=== PATIENT | female | born 1985 | race Caucasian/White ===

== ENCOUNTER → 2017-05-07 | Outpatient (CLI) | payer MEDICARE, OTHER ==
[2017-05-07 13:22] LABS: Basophils % (A) 1 %; Eosinophils % (A) 1 %; HCT 42.5 % (34.0-46.0); HGB 12.1 gm/dL (11.4-16.0); Hypochromasia Marked; Lymphocytes # (A) 1.5 k/uL (1.0-4.8); Lymphocytes % (A) 27 %; MCH 23.9 pg (25.0-35.0); MCHC 28.5 g/dL (31.0-37.0); MCV 83.8 fL (80.0-100.0); Mean Platelet Volume 6.8; Monocytes # (A) 0.2 k/uL (0-1.0); Monocytes % (A) 4 %; Neutrophils # (A) 3.8 k/uL (1.3-7.7); Neutrophils % (A) 67 %; Platelet Count 351 k/uL (150-450); RBC 5.07 m/uL (3.80-5.40); RDW 14.1 % (11.5-15.5); WBC 5.6 k/uL (3.8-10.6)
[2017-05-07 13:53] LABS: Albumin 4.3 g/dL (3.5-5.0); Chloride 102 mmol/L (98-107); Cholesterol 159 mg/dL (<200); Potassium 3.8 mmol/L (3.5-5.1); Sodium 141 mmol/L (137-145)
[2017-05-07 14:15] LABS: ALT 28 U/L (9-52); AST 29 U/L (14-36); Alkaline Phosphatase 106 U/L (38-126); Anion Gap 12 mmol/L; Blood Urea Nitrogen 10 mg/dL (7-17); Calcium 9.7 mg/dL (8.4-10.2); Carbon Dioxide 27 mmol/L (22-30); Glucose 97 mg/dL (74-99); HDL Cholesterol 76 mg/dL (40-60); LDL Cholesterol,Calculated 71 mg/dL (0-99); Total Bilirubin 0.7 mg/dL (0.2-1.3); Total Protein 7.7 g/dL (6.3-8.2); Triglycerides 62 mg/dL (<150)
[2017-05-07 14:56] LABS: T4, Free (Free Thyroxine) 0.61 ng/dL (0.78-2.19)
[2017-05-07 20:12] LABS: Iron Saturation 6.69 (12.00-45.00)
[2017-05-07 20:20] LABS: Vitamin D 25 Hydroxy 16.6 ng/mL (30.0-100.0)
[2017-05-07 20:39] LABS: Thyroid Peroxidase Antibodies <28.0 U/mL (0.0-60.0)
== END | disposition home or self-care (01) ==
LOC: LABWHC1 12:36
PROVIDERS: ATTEND Family Medicine
DX: D50.9 Iron deficiency anemia, unspecified (principal); R74.8 Abnormal levels of other serum enzymes; E06.3 Autoimmune thyroiditis
CPT/HCPCS: 36415; 80053; 80061; 82306; 82728; 83540; 83550; 84439; 84443; 84482; 85025; 86376; 86800

== ENCOUNTER → 2017-08-07 | Outpatient (CLI) | payer OTHER, MEDICARE ==
--- NOTE | 2017-08-07 15:05 | MR ---
EXAMINATION TYPE: MR brain wo/w con DATE OF EXAM: 08/07/2017 COMPARISON: NONE HISTORY: Pituitary hypofunction, migraines TECHNIQUE: Multiplanar, multisequence images of the brain and brainstem is performed without and with IV contras t, utilizing 7 mL intravenous Gadavist . FINDINGS: Diffusion weighted images demonstrate no evidence of a recent infarct or other diffusion abnormality. There is no extra-axial fluid collection or significant white matter signal abnormality. The ventr icular system and cisternal spaces are normal in size and appearance. The brain volume is age approp riate. Major intracranial flow voids are maintained. Midline structures demonstrate normal morphology. The craniocervical junction appears within normal limits. Post contrast images demonstrate no abnormal e nhancement. The dural venous sinuses appear patent. Scant mucosal thickening is seen within the ethmo id sinuses The remaining visualized sinuses are clear and the globes are intact. No pituitary gland e nlargement is identified. However, microadenoma is not excluded and small [id number] imaging is re commended if there is concern given the patient's history. IMPRESSION: 1. No acute intracranial process. No abnormal postcontrast enhancement. No significant white matter c hange. 2. Scant mucosal thickening within the ethmoid sinuses. 3. No enlargement of the pituitary gland without discrete pituitary abnormality, however as stated ab ove microadenoma is not excluded and small maems-ki-yniw imaging (MR pituitary mass protocol) is bety mmended if there is further concern.
== END | disposition home or self-care (01) ==
LOC: RADMRIMAIN 13:00
PROVIDERS: ATTEND Obstetrics & Gynecology Obstetrics
DX: E23.0 Hypopituitarism (principal)
CPT/HCPCS: 70553; A9581

== ENCOUNTER → 2017-08-08 | Outpatient (CLI) | payer OTHER, MEDICARE ==
--- NOTE | 2017-08-08 18:43 | MR ---
EXAMINATION TYPE: MR pituitary wo/w con DATE OF EXAM: 08/08/2017 COMPARISON: MRI brain from yesterday. HISTORY: Pituitary hypofunction. TECHNIQUE: Multiplanar, multisequence images of the brain and brainstem is performed without and with IV contras t, utilizing 7 mL intravenous Gadavist . Pituitary protocol. FINDINGS: Pituitary gland is normal in size with an sella turcica. Pituitary stalk shows normal enhan cement in the midline. Postcontrast images show heterogeneous enhancement with more focal oval poorly defined area of diminished enhancement anteriorly in the midline measuring 2.6 mm transversely coron al image 11 x 3.6 mm AP diameter sagittal image 10 in which microadenoma cannot be excluded. Suprasel lar cistern is maintained. Optic chiasm is not effaced. Craniocervical junction is preserved. No gross hydrocephalus is seen. Normal vascular flow voids are noted. IMPRESSION: Cannot exclude pituitary microadenoma as detailed above. Consider neurosurgical referral based on clinical and lab correlation.
== END | disposition home or self-care (01) ==
LOC: RADMRIMAIN 12:53
PROVIDERS: ATTEND Obstetrics & Gynecology Obstetrics
DX: E23.0 Hypopituitarism (principal)
CPT/HCPCS: 70553; A9581

== ENCOUNTER 2020-11-21 10:52 | Inpatient (IN) | payer MEDICARE, OTHER ==
[2020-11-21] MEDS ORDERED: SODIUM CHLORIDE 0.9% 1,000 ML IV STA (11:16)
[2020-11-21] MEDS ORDERED: ONDANSETRON 4 MG/2 ML VIAL IVP STA (11:16)
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
[2020-11-21 11:46] LABS: Basophils % (A) 1 %; Eosinophils # (A) 0.1 k/uL (0-0.7); Eosinophils % (A) 2 %; HCT 32.9 % (34.0-46.0); HGB 10.7 gm/dL (11.4-16.0); Hypochromasia Slight; Lymphocytes # (A) 1.2 k/uL (1.0-4.8); Lymphocytes % (A) 25 %; MCHC 32.6 g/dL (31.0-37.0); MCV 85.7 fL (80.0-100.0); Mean Platelet Volume 8.3; Monocytes # (A) 0.2 k/uL (0-1.0); Monocytes % (A) 5 %; Neutrophils # (A) 3.3 k/uL (1.3-7.7); Neutrophils % (A) 66 %; Platelet Count 276 k/uL (150-450); RBC 3.84 m/uL (3.80-5.40); RDW 14.2 % (11.5-15.5)
[2020-11-21 11:56] LABS: ALT 17 U/L (4-34); African American GFR (CKD) >90 (>60 ml/min/1.73 sqM); Albumin 4.1 g/dL (3.5-5.0); Amylase 71 U/L (30-110); Anion Gap 8 mmol/L; Blood Urea Nitrogen 11 mg/dL (7-17); Calcium 9.2 mg/dL (8.4-10.2); Carbon Dioxide 24 mmol/L (22-30); Chloride 104 mmol/L (98-107); Glucose 94 mg/dL (74-99); Lipase 156 U/L (23-300); Non-African American GFR(CKD) >90 (>60 ml/min/1.73 sqM); Sodium 136 mmol/L (137-145); Total Bilirubin 0.8 mg/dL (0.2-1.3)
[2020-11-21 11:59] LABS: Amorphous Sediment,Urine Occasional /hpf; Appearance,Urine Cloudy (Clear); Bilirubin,Urine Negative (Negative); Blood,Urine Negative (Negative); Color,Urine Yellow; Glucose,Urine (UA) Negative (Negative); Ketones,Urine Negative (Negative); Leukocyte Esterase,Urine Negative (Negative); Mucus,Urine Rare /hpf; Nitrite,Urine Negative (Negative); PH, Urine 7.5 (5.0-8.0); Protein,Urine Trace (Negative); RBC,Urine <1 /hpf (0-5); Specific Gravity,Urine 1.017 (1.001-1.035); Squamous Epithelial Cell,Urine 1 /hpf (0-4); WBC,Urine 1 /hpf (0-5)
[2020-11-21 12:02] LABS: AST 52 U/L (14-36); Potassium 4.8 mmol/L (3.5-5.1)
[2020-11-21 12:03] LABS: Alkaline Phosphatase 46 U/L (38-126)
[2020-11-21 13:05] LABS: Amphetamine Screen,Urine Detected (NotDetected); Barbiturate Screen,Urine Not Detected (NotDetected); Benzodiazepines Screen,Urine Detected (NotDetected); Cocaine Screen,Urine Not Detected (NotDetected); Methadone Screen, Urine Not Detected (NotDetected); Opiate Screen,Urine Not Detected (NotDetected); Oxycodone Screen, Urine Not Detected (NotDetected); Phencyclidine Screen,Urine Not Detected (NotDetected); Tricyclic Antidepressant,Urine Not Detected (NotDetected); Urn Cannabinoid Scrn Detected (NotDetected)
[2020-11-21] MEDS ORDERED: LORazepam 2 MG/ML INJ IM STA (14:25)
[2020-11-21] MEDS ORDERED: LORazepam 1 MG TAB PO STA (14:52)
[2020-11-21] MEDS ORDERED: MAG HYDROX/AL HYDROX/SIMETH 30 ML CUP PO PRN (15:42)
[2020-11-21] MEDS ORDERED: ACETAMINOPHEN TAB 325 MG TAB PO PRN (15:42)
[2020-11-21] MEDS ORDERED: MAGNESIUM HYDROXIDE 2,400 MG/10 ML CUP PO PRN (15:42)
[2020-11-21] MEDS ORDERED: LORazepam 2 MG/ML INJ IM PRN (15:45)
[2020-11-21] MEDS ORDERED: HALOPERIDOL LACTATE 5 MG/ML 1 ML VIAL IM PRN (15:46)
[2020-11-21] MEDS ORDERED: haloperidoL 5 MG TAB PO PRN (15:46)
[2020-11-21 16:12] VITALS: RESP 16
[2020-11-22 07:10] VITALS: BP 104/76; PULSE 76; TEMP 97.3
[2020-11-22] MEDS: LORazepam 1 MG TAB PO PRN (09:37)
--- NOTE | 2020-11-22 12:56 | P.HP ---
Psychiatric H&P - . H&P Date: 11/22/20 History & Physical: Allergies Allergy/AdvReac Type Severity Reaction Status Date / Time morphine Allergy Unknown Verified 11/21/20 11:39 nickel Allergy Unknown Verified 11/21/20 11:39 Latex, Natural Rubber AdvReac Rash/Hives Verified 11/21/20 16:26 Vital Signs Temp 97.3 F L 11/22/20 06:57 Pulse 76 11/22/20 06:57 Resp 16 11/22/20 06:57 BP 104/76 11/22/20 06:57 Pulse Ox 100 11/21/20 15:30 Intake & Output 11/21/20 11/22/20 11/22/20 18:59 06:59 18:59 Weight 56.9 kg Laboratory Last Values WBC 5.0 k/uL (3.8-10.6) 11/21/20 11:28 RBC 3.84 m/uL (3.80-5.40) 11/21/20 11:28 Hgb 10.7 gm/dL (11.4-16.0) L 11/21/20 11:28 Hct 32.9 % (34.0-46.0) L 11/21/20 11:28 MCV 85.7 fL (80.0-100.0) 11/21/20 11:28 MCH 28.0 pg (25.0-35.0) 11/21/20 11:28 MCHC 32.6 g/dL (31.0-37.0) 11/21/20 11:28 RDW 14.2 % (11.5-15.5) 11/21/20 11:28 Plt Count 276 k/uL (150-450) 11/21/20 11:28 MPV 8.3 11/21/20 11:28 Neutrophils % 66 % 11/21/20 11:28 Lymphocytes % 25 % 11/21/20 11:28 Monocytes % 5 % 11/21/20 11:28 Eosinophils % 2 % 11/21/20 11:28 Basophils % 1 % 11/21/20 11:28 Neutrophils # 3.3 k/uL (1.3-7.7) 11/21/20 11:28 Lymphocytes # 1.2 k/uL (1.0-4.8) 11/21/20 11:28 Monocytes # 0.2 k/uL (0-1.0) 11/21/20 11:28 Eosinophils # 0.1 k/uL (0-0.7) 11/21/20 11:28 Basophils # 0.0 k/uL (0-0.2) 11/21/20 11:28 Hypochromasia Slight 11/21/20 11:28 Sodium 136 mmol/L (137-145) L 11/21/20 11:28 Potassium 4.8 mmol/L (3.5-5.1) 11/21/20 11:28 Chloride 104 mmol/L (98-107) 11/21/20 11:28 Carbon Dioxide 24 mmol/L (22-30) 11/21/20 11:28 Anion Gap 8 mmol/L 11/21/20 11:28 BUN 11 mg/dL (7-17) 11/21/20 11:28 Creatinine 0.65 mg/dL (0.52-1.04) 11/21/20 11:28 Est GFR (CKD-EPI)AfAm >90 (>60 ml/min/1.73 sqM) 11/21/20 11:28 Est GFR (CKD-EPI)NonAf >90 (>60 ml/min/1.73 sqM) 11/21/20 11:28 Glucose 94 mg/dL (74-99) 11/21/20 11:28 Plasma Lactic Acid Rigo 1.4 mmol/L (0.7-2.0) 11/21/20 11:28 Calcium 9.2 mg/dL (8.4-10.2) 11/21/20 11:28 Total Bilirubin 0.8 mg/dL (0.2-1.3) 11/21/20 11:28 AST 52 U/L (14-36) H 11/21/20 11:28 ALT 17 U/L (4-34) 11/21/20 11:28 Alkaline Phosphatase 46 U/L (38-126) 11/21/20 11:28 Total Protein 7.0 g/dL (6.3-8.2) 11/21/20 11:28 Albumin 4.1 g/dL (3.5-5.0) 11/21/20 11:28 Amylase 71 U/L (30-110) 11/21/20 11:28 Lipase 156 U/L (23-300) 11/21/20 11:28 TSH 1.420 mIU/L (0.465-4.680) 11/21/20 11:28 Urine Color Yellow 11/21/20 11:28 Urine Appearance Cloudy (Clear) H 11/21/20 11:28 Urine pH 7.5 (5.0-8.0) 11/21/20 11:28 Ur Specific [place] 1.017 (1.001-1.035) 11/21/20 11:28 Urine Protein Trace (Negative) H 11/21/20 11:28 Urine Glucose (UA) Negative (Negative) 11/21/20 11:28 Urine Ketones Negative (Negative) 11/21/20 11:28 Urine Blood Negative (Negative) 11/21/20 11:28 Urine Nitrite Negative (Negative) 11/21/20 11:28 Urine Bilirubin Negative (Negative) 11/21/20 11:28 Urine Urobilinogen 2.0 mg/dL (<2.0) 11/21/20 11:28 Ur Leukocyte Esterase Negative (Negative) 11/21/20 11:28 Urine RBC <1 /hpf (0-5) 11/21/20 11:28 Urine WBC 1 /hpf (0-5) 11/21/20 11:28 Ur Squamous Epith Cells 1 /hpf (0-4) 11/21/20 11:28 Amorphous Sediment Occasional /hpf (None) H 11/21/20 11:28 Urine Mucus Rare /hpf (None) H 11/21/20 11:28 Urine HCG, Qual Not Detected (Not Detectd) 11/21/20 11:28 Urine Opiates Screen Not Detected (NotDetected) 11/21/20 12:38 Ur Oxycodone Screen Not Detected (NotDetected) 11/21/20 12:38 Urine Methadone Screen Not Detected (NotDetected) 11/21/20 12:38 Ur Propoxyphene Screen Not Detected (NotDetected) 11/21/20 12:38 Ur Barbiturates Screen Not Detected (NotDetected) 11/21/20 12:38 U Tricyclic Antidepress Not Detected (NotDetected) 11/21/20 12:38 Ur Phencyclidine Scrn Not Detected (NotDetected) 11/21/20 12:38 Ur Amphetamines Screen Detected (NotDetected) H 11/21/20 12:38 U Methamphetamines Scrn Not Detected (NotDetected) 11/21/20 12:38 U Benzodiazepines Scrn Detected (NotDetected) H 11/21/20 12:38 Urine Cocaine Screen Not Detected (NotDetected) 11/21/20 12:38 U Marijuana (THC) Screen Detected (NotDetected) H 11/21/20 12:38 11/22/20 11:33 IDENTIFYING DATA: Patient is a 35-year-old female who currently lives with her mother in a house and also has her own apartment in [place]. Has no kids and is currently HPI: Patient presented to the hospital yesterday with chief complaint of abdominal pain for the past 2 weeks. Patient apparently has a history of gastric bypass surgery over 10 years ago. She admitted to losing weight within the past several months. Patient did present in the ER to be bizarre and delusional and her UDS was positive for amphetamines, benzodiazepines and marijuana. As per petition states that "patient is not eating has had significant weight loss, admits to hearing voices, picking at skin, paranoid ideations not sleeping as usual to attempt her basic needs due to paranoia thought process". Patient was seen wandering on the unit and was agreeable to speak to communications writer. Patient appeared to be somewhat confused early on in conversation and gave communications writer false information about her name and her date however afterwards stated "I was just joking about that". She was inappropriate at times during conversation and was argumentative as well. She did claim that she does not know why she is in the hospital and denied everything on the petition that was stated to her. She claims that her mother drove her to the hospital to have her "stomach looked at". She states that she is not having any more abdominal pain and does not believe she needs to be on the psychiatric unit. She was alert and oriented 3. She claims that her appetite is fair. She states that her sleep is poor and has frequent awakenings and states that "sometimes I cry at nighttime". She states that her mood has been mildly depressed at times. She is not endorsing any paranoia and is denying it at this time however was argumentative and suspicious of communications writer. Patient denies any current suicidal or homicidal ideations intent or plan. At this time patient denies any auditory or visual hallucinations. Patient denies any flight of ideas racing thoughts and increased in goal directed behavior. Patient admits to using marijuana approximately 1-2 times a week. She states that she drinks alcohol approximately 2 beers a day. She denies any other recreational drug use and denies any cigarette use. PAST PSYCHIATRIC HISTORY: Patient states that she has no history of mental illness besides being diagnosed with ADHD. Patient is claiming that she gets prescribed Adderall for her ADHD by her psychiatrist Dr. Bates. Patient denies any previous psychiatric hospitalizations. She states that she overdosed on drugs approximately 10 years ago PMH: Patient has a history of traumatic brain injury approximately 10 years ago and also syncope ALLERGIES: as per EMR CHEMICAL DEPENDENCY HISTORY: as per HPI FAMILY PSYCHIATRIC/SUBSTANCE USE HISTORY: denies SOCIAL HISTORY: Patient was born and raised in [facility]. She states that she almost graduated college. She denied having any work history. She currently collects [employer]. She denies any legal problems in the past. She claims that she is currently and has no kids. She currently lives between her mother's house and her apartment in [place] MENTAL STATUS EXAM: General Appearance: Patient appears to be thin, tall, stated age is alert, argumentative at times and difficult to redirect. Patient appears to have poor hygiene and grooming. Several scabs and excoriations on her legs and arms. Behavior: Patient is seated without any agitated behavior. Argumentative Speech: Patient's speech is fluent and nonpressured. Mood/Affect: Patient reports their mood is depressed at times, affect is congruent and constricted. Suicidality/Homicidality: Patient denies having any homicidal ideation intent or plan. Denies any suicidal ideations intent or plan Perceptions: Patient denies any visual hallucinations and denies any auditory hallucinations Though content/process: Patient is bizarre at times and her thought content and process. She has poor insight. Logical at times Memory and concentration: AOX3, grossly intact for the purposes of this session. Can spell "WORLD" backwards Judgment and insight: poor STRENGTHS/WEAKNESSES: strength is that patient is resilient. Weakness is that patient has poor judgment and is impulsive INTELLECT: average IMPRESSIONS: Psychosis unspecified, rule out secondary to substance use Cannabis use disorder Possible stimulant abuse History of traumatic brain injury PLAN: -Patient is admitted under involuntary status to MHU for stabilization of psychiatric symptoms and safety. Patient has not signed adult voluntary form and medication consent and is placed in patient's chart. A second certification was completed and along with petition will be filed for court. -Medications : Will start patient on Prozac 20 mg daily for mood/anxiety. Zyprexa 2.5 mg daily at bedtime for mood stabilization/insomnia/psychosis. -Ativan and Haldol PRN for agitation/aggression -Patient was counselled on substance abuse and desired to cut back on use -Patient was informed of the risks, benefits and side effects of the medication and patient verbally consented to taking the medications. Patient signed med consent form and was placed in chart. -Internal Medicine consult to perform medical evaluation and physical. -NRT - not needed this patient does not smoke -SW on board for discharge planning. Encourage patient to participate in groups to work on coping skills. Will await deferral and court date. Will attempt to gather further collateral information from patients mother. 11/22/20 12:57
[2020-11-22 13:40] VITALS: BMI 18.5
[2020-11-22] MEDS: FLUoxetine HCL 20 MG CAP PO SCH (13:51)
[2020-11-22] MEDS: OLANZapine 2.5 MG TAB PO SCH (21:40)
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
[2020-11-23] MEDS: FLUoxetine HCL 20 MG CAP PO SCH (07:46)
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
[2020-11-23] MEDS: LORazepam 1 MG TAB PO PRN (19:09)
[2020-11-23] MEDS: OLANZapine 2.5 MG TAB PO SCH (20:46)
[2020-11-24] MEDS: FLUoxetine HCL 20 MG CAP PO SCH (08:10)
--- NOTE | 2020-11-24 09:11 | P.PN ---
Progress Note - Text Progress Note Date: 11/24/20 Interval History: Patient was seen in her room this morning and was directable and agreeable to speak with commercial real estate underwriter in the office. Patient appears to be less irritable today and less argumentative with commercial real estate underwriter initially. She asked commercial real estate underwriter about what he talked to her mother about and mentioned "the papers" and talked about a "jeep". When commercial real estate underwriter asked to clarify, patient states "don't worry about it" and then smirked. She claims that she just started taking the medications last night and asked more about the medications. She claims that she feels mild improvement in terms of her mood and anxiety. She claims that she does trust the staff here on the unit however made some bizarre comments about them. She pressed commercial real estate underwriter several times about her cloth layer and also discharge and continues to demonstrate fairly superficial insight. she slept fairly last night. At this time patient denies an y suicidal or homical ideations, intent or plan. Patient denies any auditory, visual hallucinations.. Patient denies any side effects from the medications and has been compliant with meds. Mental Status Exam: General Appearance: Patient appears to be thin, tall, stated age is alert, argumentative at times, improving mildly. Patient appears to have improving hygiene and grooming. Several scabs and excoriations on her legs and arms. Behavior: Patient is seated without any agitated behavior. Argumentative, improving mildly Speech: Patient's speech is fluent and nonpressured. Mood/Affect: Patient reports their mood is "better", affect is congruent and constricted. Suicidality/Homicidality: Patient denies having any homicidal ideation intent or plan. Denies any suicidal ideations intent or plan Perceptions: Patient denies any visual hallucinations and denies any auditory hallucinations Though content/process: Patient is bizarre at times and her thought content and process. She has poor/superficial insight. Memory and concentration: AOX3, grossly intact for the purposes of this session Judgment and insight: poor/superficial Assessment Psychosis unspecified, rule out secondary to stimulant use Cannabis use disorder Possible stimulant abuse History of traumatic brain injury Plan: -Patient continues to meet criteria for inpatient psychiatric admission for symptom stabilization and safety. Patient has not signed adult voluntary form and was placed in patient's chart. -Medications: continue with prozac 20mg daily for mood/anxiety and zyprexa 2.5 mg qhs for mood stabilization/insomnia/psychosis. Patient just started taking the medications last night. -When necessary Ativan and Haldol for agitation/aggression. -NRT - not needed this patient does not smoke -SW on board for discharge planning. Encouraged the patient to participate in milieu. Currently awaiting deferral today with cloth layer. if patient defers then likely d/c in 1-2 days back home.
[2020-11-24] MEDS: OLANZapine 2.5 MG TAB PO SCH (20:41)
[2020-11-24] MEDS: LORazepam 1 MG TAB PO PRN (20:41)
[2020-11-25] MEDS: FLUoxetine HCL 20 MG CAP PO SCH (09:10)
--- NOTE | 2020-11-25 10:10 | P.DS ---
Providers Date of admission: 11/21/20 15:28 Expected date of discharge: 11/25/20 Attending physician: Kannan Durham MD Consults: 11/21/20 15:42 Consult Physician Routine Consulting Provider: Irma Gardner Consult Reason/Comments: New admission H & P Do you want consulting provider notified?: Yes Primary care physician: Darya Klein, DO - Discharge Diagnosis(es) (1) Unspecified psychosis Current Visit: Yes Status: Acute Priority: High (2) Cannabis use disorder, mild, abuse Current Visit: Yes Status: Acute Priority: Medium (3) Stimulant abuse Current Visit: Yes Status: Acute Priority: Medium (4) History of traumatic brain injury Current Visit: Yes Status: Acute Priority: Low Hospital Course: Admission HPI: Admission note was completed by telegraphic typewriter repairer "Patient is a 35-year-old female who currently lives with her mother in a house and also has her own apartment in [place]. Has no kids and is currently . Patient presented to the hospital yesterday with chief complaint of abdominal pain for the past 2 weeks. Patient apparently has a history of gastric bypass surgery over 10 years ago. She admitted to losing weight within the past several months. Patient did present in the ER to be bizarre and delusional and her UDS was positive for amphetamines, benzodiazepines and marijuana. As per petition states that "patient is not eating has had significant weight loss, admits to hearing voices, picking at skin, paranoid ideations not sleeping as usual to attempt her basic needs due to paranoia thought process". Patient was seen wandering on the unit and was agreeable to speak to telegraphic typewriter repairer. Patient appeared to be somewhat confused early on in conversation and gave telegraphic typewriter repairer false information about her name and her date however afterwards stated "I was just joking about that". She was inappropriate at times during conversation and was argumentative as well. She did claim that she does not know why she is in the hospital and denied everything on the petition that was stated to her. She claims that her mother drove her to the hospital to have her "stomach looked at". She states that she is not having any more abdominal pain and does not believe she needs to be on the psychiatric unit. She was alert and oriented 3. She claims that her appetite is fair. She states that her sleep is poor and has frequent awakenings and states that "sometimes I cry at nighttime". She states that her mood has been mildly depressed at times. She is not endorsing any paranoia and is denying it at this time however was argumentative and suspicious of telegraphic typewriter repairer. Patient denies any current suicidal or homicidal ideations intent or plan. At this time patient denies any auditory or visual hallucinations. Patient denies any flight of ideas racing thoughts and increased in goal directed behavior. Patient admits to using marijuana approximately 1-2 times a week. She states that she drinks alcohol approximately 2 beers a day. She denies any other recreational drug use and denies any cigarette use." Hospital course: Upon admission to the unit patient was initially bizarre, paranoid and argumentative. Patient was however not agreeable to commence treatment and was admitted involuntarily. A second certificate and petition was filed with the courts and patient ended up deferring court and agreed to treatment with her county attorney. Patient got along well with other patients on the unit and followed unit protocol. Patient was compliant with the medications and denied any side effects throughout hospital course. Patient was started on Prozac 20 mg daily for mood/anxiety, Zyprexa 2.5 mg daily at bedtime for mood stabilization/insomnia/psychosis. Patient was also previously on Adderall which may have been contributing to patient's psychosis and paranoia and was discontinued. Patient spoke of her stressors and engaged in therapy both group and individual. Patient was also seen by medical team for history and physical exam. Throughout the course of the hospitalization patient gradually improved with regards to mood, anxiety, psychosis/paranoia, sleep and became more future oriented with improved insight and judgment. On the day of discharge patient denied any suicidal or homicidal ideations intent or plan denied any auditory or visual hallucinations. Patient endorsed wanting to live for her friends and family and future. The patient denied any access to guns or weapons. Patient denied any paranoia and did not endorse any delusions. Patient does have a significant history of substance abuse and was counseled on abstaining from all substances including alcohol and marijuana. Patient was also counseled on the medications and need for regular compliance and was encouraged to follow-up with their outpatient appointment for mental health and also for primary care. Visual Coordinator spoke with patient's mother over the phone and patient about the medications and the possible link of stimulant abuse to the psychotic symptoms and suggested that patient not take anymore psychostimulants and continue following up with her outpatient psychiatrist. Questions and concerns were addressed and answered. Mental status exam: General Appearance: Patient appears to be tall, thin, stated age is alert, pleasant, and cooperative. Patient is in no acute distress and has improved hygiene and grooming Behavior: Patient is calmly seated without any agitated behavior. Speech: Patient's speech is fluent and nonpressured. Mood/Affect: Patient reports their mood is "better", affect is congruent and euthymic. Suicidality/Homicidality: Patient denies having any suicidal or homicidal ideation intent or plan. Perceptions: Patient denies any auditory or visual hallucinations. Though content/process: There is no evidence of any delusional thought content and thought process is linear and goal-directed. more future oriented Memory and concentration: AOX3, grossly intact for the purposes of this session. Can spell "WORLD" backwards correctly. 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 Patient will remain at chronically elevated risk for harm to self and/or others due to her history of a traumatic brain injury. -Continue medications: Prozac 20 mg daily for mood/anxiety, Zyprexa 2.5 mg daily at bedtime for mood stabilization/psychosis/insomnia. Discontinued Adderall as this was most liekly the cause for patients weight loss and psychotic sx. -Patient was counseled on the need for medication compliance and appropriate follow-up at mental health and also primary care for medical issues. Patient verbalized understanding and agreed. -Social work to arrange for and conduct family meeting to ensure safety upon discharge and answer any questions/concerns. Social work also to arrange for patients follow up appointments for psychiatric care along with follow up with primary care provider. -Patient counseled on abstaining from recreational drugs and marijuana and alcohol. Was informed/educated on the adverse effects on their physical and mental health. Patient verbally agreed and understood. -Patient was instructed to return to the hospital or seek immediate medical care if their psychiatric or medical symptoms do worsen or reoccur. Allergies Allergy/AdvReac Type Severity Reaction Status Date / Time morphine Allergy Unknown Verified 11/21/20 11:39 nickel Allergy Unknown Verified 11/21/20 11:39 Latex, Natural Rubber AdvReac Rash/Hives Verified 11/21/20 16:26 Laboratory Results WBC 5.0 k/uL (3.8-10.6) 11/21/20 11:28 RBC 3.84 m/uL (3.80-5.40) 11/21/20 11:28 Hgb 10.7 gm/dL (11.4-16.0) L 11/21/20 11:28 Hct 32.9 % (34.0-46.0) L 11/21/20 11:28 MCV 85.7 fL (80.0-100.0) 11/21/20 11:28 MCH 28.0 pg (25.0-35.0) 11/21/20 11:28 MCHC 32.6 g/dL (31.0-37.0) 11/21/20 11:28 RDW 14.2 % (11.5-15.5) 11/21/20 11:28 Plt Count 276 k/uL (150-450) 11/21/20 11:28 MPV 8.3 11/21/20 11:28 Neutrophils % 66 % 11/21/20 11:28 Lymphocytes % 25 % 11/21/20 11:28 Monocytes % 5 % 11/21/20 11:28 Eosinophils % 2 % 11/21/20 11:28 Basophils % 1 % 11/21/20 11:28 Neutrophils # 3.3 k/uL (1.3-7.7) 11/21/20 11:28 Lymphocytes # 1.2 k/uL (1.0-4.8) 11/21/20 11:28 Monocytes # 0.2 k/uL (0-1.0) 11/21/20 11:28 Eosinophils # 0.1 k/uL (0-0.7) 11/21/20 11:28 Basophils # 0.0 k/uL (0-0.2) 11/21/20 11:28 Hypochromasia Slight 11/21/20 11:28 Sodium 136 mmol/L (137-145) L 11/21/20 11:28 Potassium 4.8 mmol/L (3.5-5.1) 11/21/20 11:28 Chloride 104 mmol/L (98-107) 11/21/20 11:28 Carbon Dioxide 24 mmol/L (22-30) 11/21/20 11:28 Anion Gap 8 mmol/L 11/21/20 11:28 BUN 11 mg/dL (7-17) 11/21/20 11:28 Creatinine 0.65 mg/dL (0.52-1.04) 11/21/20 11:28 Est GFR (CKD-EPI)AfAm >90 (>60 ml/min/1.73 sqM) 11/21/20 11:28 Est GFR (CKD-EPI)NonAf >90 (>60 ml/min/1.73 sqM) 11/21/20 11:28 Glucose 94 mg/dL (74-99) 11/21/20 11:28 Plasma Lactic Acid [place] 1.4 mmol/L (0.7-2.0) 11/21/20 11:28 Calcium 9.2 mg/dL (8.4-10.2) 11/21/20 11:28 Total Bilirubin 0.8 mg/dL (0.2-1.3) 11/21/20 11:28 AST 52 U/L (14-36) H 11/21/20 11:28 ALT 17 U/L (4-34) 11/21/20 11:28 Alkaline Phosphatase 46 U/L (38-126) 11/21/20 11:28 Total Protein 7.0 g/dL (6.3-8.2) 11/21/20 11:28 Albumin 4.1 g/dL (3.5-5.0) 11/21/20 11:28 Amylase 71 U/L (30-110) 11/21/20 11:28 Lipase 156 U/L (23-300) 11/21/20 11:28 TSH 1.420 mIU/L (0.465-4.680) 11/21/20 11:28 Urine Color Yellow 11/21/20 11:28 Urine Appearance Cloudy (Clear) H 11/21/20 11:28 Urine pH 7.5 (5.0-8.0) 11/21/20 11:28 Ur Specific [place] 1.017 (1.001-1.035) 11/21/20 11:28 Urine Protein Trace (Negative) H 11/21/20 11:28 Urine Glucose (UA) Negative (Negative) 11/21/20 11:28 Urine Ketones Negative (Negative) 11/21/20 11:28 Urine Blood Negative (Negative) 11/21/20 11:28 Urine Nitrite Negative (Negative) 11/21/20 11:28 Urine Bilirubin Negative (Negative) 11/21/20 11:28 Urine Urobilinogen 2.0 mg/dL (<2.0) 11/21/20 11:28 Ur Leukocyte Esterase Negative (Negative) 11/21/20 11:28 Urine RBC <1 /hpf (0-5) 11/21/20 11:28 Urine WBC 1 /hpf (0-5) 11/21/20 11:28 Ur Squamous Epith Cells 1 /hpf (0-4) 11/21/20 11:28 Amorphous Sediment Occasional /hpf (None) H 11/21/20 11:28 Urine Mucus Rare /hpf (None) H 11/21/20 11:28 Urine HCG, Qual Not Detected (Not Detectd) 11/21/20 11:28 Urine Opiates Screen Not Detected (NotDetected) 11/21/20 12:38 Ur Oxycodone Screen Not Detected (NotDetected) 11/21/20 12:38 Urine Methadone Screen Not Detected (NotDetected) 11/21/20 12:38 Ur Propoxyphene Screen Not Detected (NotDetected) 11/21/20 12:38 Ur Barbiturates Screen Not Detected (NotDetected) 11/21/20 12:38 U Tricyclic Antidepress Not Detected (NotDetected) 11/21/20 12:38 Ur Phencyclidine Scrn Not Detected (NotDetected) 11/21/20 12:38 Ur Amphetamines Screen Detected (NotDetected) H 11/21/20 12:38 U Methamphetamines Scrn Not Detected (NotDetected) 11/21/20 12:38 U Benzodiazepines Scrn Detected (NotDetected) H 11/21/20 12:38 Urine Cocaine Screen Not Detected (NotDetected) 11/21/20 12:38 U Marijuana (THC) Screen Detected (NotDetected) H 11/21/20 12:38 Vital Signs Temp 97.3 F L 11/22/20 06:57 Pulse 76 11/22/20 06:57 Resp 16 11/22/20 06:57 BP 104/76 11/22/20 06:57 Pulse Ox 100 11/21/20 15:30 Patient Condition at Discharge: Stable Plan - Discharge Summary New Discharge Prescriptions: New OLANZapine [ZyPREXA] 2.5 mg PO HS 30 Days tab FLUoxetine HCL [PROzac] 20 mg PO DAILY 30 Days cap Discontinued Acetaminophen Tab [Tylenol Tab] 1,000 mg PO Q6HR PRN PRN Reason: Pain Or Fever > 100.5 Dextroamphetamine/Amphetamine [Adderall] 15 mg PO BID@0800,1200 Discharge Medication List FLUoxetine HCL [PROzac] 20 mg PO DAILY 30 Days cap 11/25/20 [Rx] OLANZapine [ZyPREXA] 2.5 mg PO HS 30 Days tab 11/25/20 [Rx] Follow up Appointment(s)/Referral(s): Jamel Starks [Other] - 12/08/20 10:00 am ([place] ) Darya Klein DO [Primary Care Provider] - 1-2 days Discharge Disposition: HOME SELF-CARE
== END 2020-11-25 13:16 | disposition home or self-care (01) | DRG 885 ==
LOC: EC 10:52 → SUPCPDRO 10:52 → 3MHU 15:28
PROVIDERS: ADMIT Psychiatry & Neurology Psychiatry; ATTEND Psychiatry & Neurology Psychiatry
DX: F29 Unspecified psychosis not due to a substance or known physiological condition (principal); E46 Unspecified protein-calorie malnutrition; Z68.1 Body mass index [BMI] 19.9 or less, adult; F13.20 Sedative, hypnotic or anxiolytic dependence, uncomplicated; F12.20 Cannabis dependence, uncomplicated; F15.29 Other stimulant dependence with unspecified stimulant-induced disorder; F31.9 Bipolar disorder, unspecified; F41.9 Anxiety disorder, unspecified; G47.00 Insomnia, unspecified; R10.9 Unspecified abdominal pain; G89.29 Other chronic pain; M54.5 Low back pain; Z79.899 Other long term (current) drug therapy; Z87.820 Personal history of traumatic brain injury; Z91.5 Personal history of self-harm; Z98.84 Bariatric surgery status; Z88.5 Allergy status to narcotic agent; Z88.8 Allergy status to other drugs, medicaments and biological substances; Z91.040 Latex allergy status; Z91.048 Other nonmedicinal substance allergy status
CPT/HCPCS: 36415; 80053; 80306; 81001; 81025; 82150; 83605; 83690; 84443; 85025; 96374; 99284

== ENCOUNTER → 2021-10-19 | Outpatient (CLI) | payer MEDICARE, OTHER ==
--- NOTE | 2021-10-19 20:28 | XR ---
EXAMINATION TYPE: XR ankle complete RT, XR foot complete RT DATE OF EXAM: 10/19/2021 COMPARISON: NONE INDICATION: Pain after fall TECHNIQUE: 3 views of the right ankle and 3 views of the right foot FINDINGS: Tiny inferior calcaneal spur. No definite acute fracture line identified. Preserved ankle mortise wit h a smooth talar dome. No sizable ankle joint effusion. 14 mm accessory ossicle is seen at the medial aspect of the talonavicular articulation. No other sign ificant bony or articular abnormality identified. IMPRESSION: No definite acute fracture or dislocation. Incidental findings as described above.
== END | disposition home or self-care (01) ==
LOC: RADXRYALE 14:51
PROVIDERS: ATTEND Physician Assistant
DX: M77.31 Calcaneal spur, right foot (principal)

== ENCOUNTER → 2022-03-23 | Outpatient (CLI) | payer MEDICARE, OTHER ==
--- NOTE | 2022-03-23 15:51 | XR ---
EXAMINATION TYPE: XR lumbosacral spine min 4V DATE OF EXAM: 03/23/2022 CLINICAL HISTORY: pain COMPARISON: NONE TECHNIQUE: Frontal, lateral, and oblique images of the lumbar spine are obtained. FINDINGS: There are 5 lumbar type vertebral bodies identified. The lumbar spine shows satisfactory alignment without evidence of acute fracture or dislocation. Vertebral body heights are within normal limits. Disc spaces are well preserved. The overlying soft tissue appears unremarkable. IMPRESSION: No acute fracture or dislocation is seen in the lumbar spine.ICD 10 NO FRACTURE, INITIAL EVALUATION
== END | disposition home or self-care (01) ==
LOC: RADXRYALE 15:28
PROVIDERS: ATTEND Physician Assistant
DX: M54.50 Low back pain, unspecified (principal)
CPT/HCPCS: 72110